=== PATIENT | male | born 1975 | race Caucasian/White ===

== ENCOUNTER → 2022-08-01 16:48 | Outpatient (CLI) | payer OTHER, SELFPAY ==
--- NOTE | 2022-08-01 16:50 | DI.MRI.S_ITS ---
PROCEDURE: MR KNEE LT WO CON INDICATIONS: Unspecified internal derangement of left knee TECHNIQUE: Noncontrast sagittal PD fast spin echo and T2 fast spin echo with fat saturation, sagittal 3-D FLASH with fat saturation; coronal T1 spin echo and PD fast spin echo with fat saturation, and axial PD fast spin echo with fat saturation through the knee. COMPARISON: [facility], CR, XR KNEE 4+ VIEWS LEFT, 07/18/2022, 14:42. FINDINGS: Image quality: Excellent. Anterior Cruciate Ligament: Intact. Posterior Cruciate Ligament: Intact. Medial Collateral Ligament: Mild soft tissue edema is seen surrounding the midportion of the medial collateral ligament, which may indicate a low-grade sprain. No disruption of ligament fibers is seen. Lateral Collateral Ligament: Intact. Medial Meniscus: Complex tearing of the medial meniscus is seen with a shallow radial component at the posterior horn as well as a horizontal oblique component at the junction of the posterior horn and body extending to the middle third of the femoral articular surface. Lateral Meniscus: Intact. Medial and Lateral Tendons: There is thickening and intermediate signal intensity within the semimembranosus tendon at its insertion onto the medial tibial plateau. Visualized portions of the pes anserinus tendons appear normal. No abnormal bursal fluid. The long and short heads of the biceps femoris tendon appear intact. The popliteus tendon appears intact. No signs of posterolateral corner injury. Iliotibial band appears normal. Anterior Structures: The quadriceps and patellar tendons appear intact. No patellar subluxation. No femoral trochlear dysplasia or ventral trochlear prominence. No edema in the infrapatellar fat pad. Bones: No acute trabecular bone injury or fracture. Medial Femorotibial Cartilage: There is mild partial-thickness cartilage thinning in the weight-bearing portion of the medial femorotibial compartment. Lateral Femorotibial Cartilage: Intact. Patellofemoral Cartilage: There is focal high-grade versus full-thickness cartilage loss at the trochlear groove with subchondral edema. High-grade partial-thickness cartilage irregularity is seen at the lateral patellar facet. Soft Tissues: A small joint effusion is noted. Trace medial popliteal cyst. As small amount of fluid is seen tracking along the popliteus tendon sheath. The musculature surrounding the knee is normal in bulk. IMPRESSION: 1. Complex tearing of the medial meniscus with a shallow radial component at the posterior horn and a small horizontal oblique component at the junction of the posterior horn and body extending to the middle third of the femoral articular surface. 2. Grade 1 sprain of the midportion of the medial collateral ligament. 3. Insertional tendinosis of the distal semimembranosus tendon. 4. 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 Mild grade 2 cartilage thinning in the medial femorotibial compartment. 5. Small joint effusion. Approved by: Mahesh Sneed M.D. on 08/02/2022 at 8:39
== END ==
PROVIDERS: Family Provider Family Medicine; PCP Family Medicine; Referring Provider Orthopaedic Surgery; Visit Provider Orthopaedic Surgery
DX: S83.232A Complex tear of medial meniscus, current injury, left knee, initial encounter (principal); S83.412A Sprain of medial collateral ligament of left knee, initial encounter; M23.92 Unspecified internal derangement of left knee; M22.42 Chondromalacia patellae, left knee; M25.462 Effusion, left knee
CPT/HCPCS: 73721